=== PATIENT | female | born 1965 | race Caucasian/White ===

== ENCOUNTER 2016-07-27 23:02 | Emergency (ER) | payer OTHER ==
[~2016-07-27] VITALS: Ht 170.2 cm; Wt 86.5 kg
[~2016-07-27 23:02] MED LIST: ATEN50TA PO; CLON-379 PO; LISI40TA9 PO; LORA-186 PO; OMEP20CA9 PO
[2016-07-27 23:08] VITALS: Ht 170.2 cm; Wt 86.5 kg
[2016-07-28] MEDS ORDERED: AZIT250T94 PO (01:31)
[2016-07-28] MEDS ORDERED: NAPR-260 PO (01:31)
[2016-07-28] MEDS ORDERED: POLY10DR BOTH EYES (01:31)
[2016-07-28] MEDS ORDERED: PROM118S PO (01:31)
[2016-07-28] MEDS ORDERED: CLON0.1T95 PO (01:31)
--- NOTE | 2016-07-28 01:41 | ERD ---
ER Documentation Chief Complaint Date/Time DATE: 07/28/16 TIME: 01:33 Chief Complaint sore throat x 1 week HPI 50-year-old female with a history of hypertension presents to the emergency department complaining of 2 week history of cough, cold, congestion, body aches , bilateral eye discharge and crusting, and sore throat. Patient states she is attempted to treat her symptoms with Advil with only mild relief. Patient notes that her eye discomfort and discharge has gradually worsened over the last 3 days. Patient also states that she has recently run out of her blood pressure medication, clonidine, and would like a refill if possible. Patient denies any wheezing, intractable fever, nausea, vomiting, dysuria, hematuria or abdominal pain. ROS All systems reviewed and are negative except as per history of present illness. Medications Home Meds Active Scripts Polymyxin/Trimethoprim* (Polytrim* Eye Drops) 10 Ml Drops, 1 DROP BOTH EYES Q3H for 7 Days, EA Prov:NBA HUDSON PA-C 07/28/16 Clonidine Hcl (KAPVAY) 0.1 Mg Tab.er.12h, 0.2 MG PO TID for 60 Days, TAB Prov:NBA HUDSON PA-C 07/28/16 Naproxen* (Naprosyn*) 500 Mg Tablet, 500 MG PO BID for 10 Days, TAB Prov:NBA HUDSON PA-C 07/28/16 Promethazine/Phenyleph/Codeine (Quqdmxrxkmkk-DI-Squifpu Syrup) 118 Ml Syrup, 5 ML PO QPM for 7 Days Prov:NBA HUDSON PA-C 07/28/16 Azithromycin* (Zithromax*) 250 Mg Tablet, 250 MG PO .PRABHJOT DIRECTED, #6 TAB TAKE 500 MG (2 TABS) THE FIRST DAY THEN 250 MG (1 TAB) DAYS 2-5 Prov:NBA HUDSON PA-C 07/28/16 Omeprazole* (Prilosec*) 20 Mg Capsule., 20 MG PO DAILY, #30 CAP Prov:SAVANA ALVAREZ PA-C 10/29/15 Clonidine Hcl* (Clonidine Hcl*) 0.1 Mg Tab, 0.2 MG PO TID, #45 TAB Take one tablet three times a day for BP 140>85 Prov:SAVANA ALVAREZ PA-C 10/29/15 Loratadine* (Claritin*) 10 Mg Tablet, 10 MG PO DAILY for 30 Days, TAB Prov:SAVANA ALVAREZ PA-C 10/29/15 Atenolol* (Atenolol*) 50 Mg Tablet, 50 MG PO DAILY, #14 TAB Prov:STEFFANY GILES MD 03/01/15 Lisinopril* (Lisinopril*) 40 Mg Tablet, 40 MG PO DAILY, #14 TAB Prov:STEFFANY GILES MD 03/01/15 Clonidine Hcl* (Clonidine Hcl*) 0.1 Mg Tab, 0.1 MG PO BID, #20 Prov:STEFFANY GILES MD 03/01/15 Reported Medications Atenolol* (Atenolol*) 50 Mg Tablet, 50 MG PO DAILY, TAB 03/01/15 Lisinopril* (Lisinopril*) 40 Mg Tablet, 40 MG PO DAILY, TAB 03/01/15 Allergies Allergies: Coded Allergies: doxycycline (Verified Adverse Reaction, Intermediate, VOMITING, 03/01/15) promethazine HCl (Verified Adverse Reaction, Intermediate, DYSTONIC REACTION, 03/01/15) Uncoded Allergies: SULFA (Allergy, Unknown, 10/28/15) PMhx/Soc Medical and Surgical Hx: pt denies Surgical Hx History of Surgery: No Anesthesia Reaction: No Hx Neurological Disorder: No Hx Respiratory Disorders: No Hx Cardiac Disorders: Yes (HTN) Hx Psychiatric Problems: No Hx Miscellaneous Medical Probl: No Hx Alcohol Use: No Hx Substance Use: No Hx Tobacco Use: No Smoking Status: Never smoker Physical Exam Vitals Vital Signs Date Time Temp Pulse Resp B/P Pulse Ox O2 Delivery O2 Flow Rate FiO2 07/27/16 23:08 98.5 69 20 155/85 100 Physical Exam Const: Well-developed, well-nourished, in no acute distress Head: Atraumatic Eyes: Bilateral injection with clear discharge. No evidence of crusting ENT: Normal External Ears, Nose and Mouth. Oropharynx non-erythematous without tonsillar swelling or exudate. Neck: Full range of motion..~ No meningismus. Resp: Clear to auscultation bilaterally, no wheezes, rhonchi, rales Cardio: Regular rate and rhythm, no murmurs Abd: Soft, non tender, non distended. Normal bowel sounds Skin: No petechiae or rashes Back: No midline or flank tenderness Ext: No cyanosis, or edema Neur: Awake and alert Psych: Normal Mood and Affect Procedures/MDM Patient well-appearing, nontoxic, well-hydrated, in no acute distress. Vital signs reviewed patient afebrile upon arrival. Physical exam unremarkable The patient's clinical presentation is very consistent bacterial conjunctivitis , and bronchitis. The patient does not exhibit any clinical signs or symptoms concerning for serious bacterial infection or systemic illness. Based on history and clinical exam findings the patient does not appear to have evidence of pneumonia, strep pharyngitis, urinary tract infection, bacteremia, sepsis, or meningitis. For these reasons I do not believe it is necessary to obtain laboratory testing or diagnostic imaging. I believe it would be appropriate for symptom control, and close outpatient primary care follow-up. Based on patient's history of present illness and physical examination the decision was made to discharge. The patient was re-evaluated after ED treatment and stabilizing measures, and symptoms have improved. There is no evidence of life threatening injuries or illnesses at this time. On re-examination, patient resting in no distress, stable vital signs, reports feeling better and safe for discharge with outpatient follow up with PMD in 1-2 days. Patient given return precautions. I provided the patient with a refill of her hypertension medication. Patient to follow-up with masonry installer for ongoing management. Departure Diagnosis: Primary Impression: Bronchitis Additional Impressions: HTN (hypertension) Hypertension type: essential hypertension Qualified Code: I10 - Essential hypertension URI (upper respiratory infection) URI type: unspecified viral URI Qualified Code: J06.9 - Viral upper respiratory tract infection Eye discharge Sore throat Condition: Stable Patient Instructions: Self-Care for Sore Throats Referrals: COMMUNITY CLINICS YOU HAVE RECEIVED A MEDICAL SCREENING EXAM AND THE RESULTS INDICATE THAT YOU DO NOT HAVE A CONDITION THAT REQUIRES URGENT TREATMENT IN THE EMERGENCY DEPARTMENT. FURTHER EVALUATION AND TREATMENT OF YOUR CONDITION CAN WAIT UNTIL YOU ARE SEEN IN YOUR DOCTORS OFFICE WITHIN THE NEXT 1-2 DAYS. IT IS YOUR RESPONSIBILITY TO MAKE AN APPOINTMENT FOR FOLOW-UP CARE. IF YOU HAVE A PRIMARY DOCTOR --you should call your primary doctor and schedule an appointment IF YOU DO NOT HAVE A PRIMARY DOCTOR YOU CAN CALL OUR PHYSICIAN REFERRAL HOTLINE AT IF YOU CAN NOT AFFORD TO SEE A PHYSICIAN YOU CAN CHOSE FROM THE FOLLOWING [facility] [address] [facility] [address] [facility] [address] [facility] [address] [facility]. [facility] [phone] [id number] [facility]. [facility]. [address] Additional Instructions: Call your primary care doctor TOMORROW for an appointment during the next 1-2 days.See the doctor sooner or return here if your condition worsens before your appointment time. NBA HUDSON PA-C Jul 28, 2016 01:41
== END 2016-07-28 02:06 | disposition home or self-care (01) ==
LOC: FTE 23:02
DX: J20.9 Acute bronchitis, unspecified (principal); I10 Essential (primary) hypertension; J06.9 Acute upper respiratory infection, unspecified; H57.8 Other specified disorders of eye and adnexa; J02.9 Acute pharyngitis, unspecified
CPT/HCPCS: 99284